=== PATIENT | male | born 1965 | race Two or more races ===

== ENCOUNTER 2024-06-06 13:01 | Emergency (ER) | payer OTHER, SELFPAY ==
--- NOTE | ~2024-06-06 | CT_ITS ---
EXAMINATION: CT HEAD WITHOUT CONTRAST CLINICAL INFORMATION: Head trauma. COMPARISON: CT head August 06, 2008 TECHNIQUE: Contiguous axial imaging was performed from the skull base to vertex without intravenous administration of contrast. Coronal and sagittal reformatted images are performed at the CT scanner. This CT examination was performed using dose optimization techniques as appropriate, variously including the following: *Automated exposure control *Adjustment of mA and/or kV according to patient size (this includes techniques or standardized protocols for targeted exams where dose is matched to indication/reason for exam; i.e. extremities or head) *Use of iterative reconstruction technique DLP: 649 mGy-cm. FINDINGS: There is no evidence of acute intracranial hemorrhage or territorial infarction. No abnormal mass-effect or midline shift is seen. Knutson to white matter differentiation is well preserved. No extra-axial fluid collections are identified. The ventricles are normal in size. There is no abnormal attenuation within the brain parenchyma. There is no osseous abnormality. Pansinus disease. Lobular mucosal thickening in the frontal ethmoid maxillary and sphenoid sinuses. No significant disease in the bilateral maxillary sinus. CT/CT head/brain wo IV con IMPRESSION: 1. No acute intracranial pathology. 2. Pansinus disease. Electronically signed by: Daljit Meyer MD 06/06/2024 04:58 PM EDT RP
[2024-06-06 14:10] VITALS: BP 181/109; PULSE 74; RESP 16; TEMP 36.8; O2SAT 98; BMI 29.2
--- NOTE | 2024-06-06 14:15 | ED.GENADULT ---
HPI - General Adult General Chief complaint: Head Injury Stated complaint: Head inj work inj Time Seen by Provider: 06/06/24 17:40 Source: patient, RN notes reviewed and old records reviewed Mode of arrival: ambulatory Limitations: no limitations History of Present Illness ED Provider: Gary GRAVES narrative: 59-year-old male presents for evaluation of a head injury. Patient was at work for [employer] works. He states that it machine sent a rock approximately size of a baseball flying in the air that hit the patient on the right side of the head near his confucianism. He reported a loss of consciousness with dizziness. He is not on any blood thinners. He complains of a right-sided headache Denies any blurry vision, nausea vomiting Denies any neck pain or any other injuries Related Data Allergies Allergy/AdvReac Type Severity Reaction Status Date / Time No Known Allergies Allergy Verified 06/06/24 14:11 Review of Systems Constitutional: Constitutional: Denies body ache(s), Denies chills, Denies frequent falls and Reports headache(s) Eyes: Eyes: Denies blurry vision and Denies change in vision ENT: Denies vertigo, Denies dizziness and Reports headache(s) Cardiovascular: Cardiovascular: Denies chest pain and Denies dyspnea Respiratory: Respiratory: Denies dyspnea Gastrointestinal: Gastrointestinal: Denies abdominal pain, Denies nausea and Denies vomiting Musculoskeletal: Musculoskeletal: Denies back pain Integumentary/Breasts: Skin/Breast: Denies rash and Denies wounds Neurologic: Denies vertigo, Denies dizziness, Denies frequent falls and Reports headache(s) PMFSH Social History Social History Advance Directives: No Advance Directives Information Provided: No Physical Exam ED Vital Signs: Vital Signs - 24 hr 06/06/24 14:10 Temperature 98.3 F Pulse Rate 74 Respiratory Rate 16 Blood Pressure 181/109 H Pulse Oximetry 98 Oxygen Delivery Method Room Air BMI result Body Mass Index 29.2 Const General: healthy appearing, comfortable, no acute distress, alert and awake Nutritional Appearance: well nourished Orientation/consciousness: patient oriented x3 HENMT Other: Small cutaneous hematoma in the right temporal region, no wounds or lacerations Eyes Eyelids: Yes eyelids normal Conjunctivae: conjunctivae normal Sclerae: sclerae normal Corneas: corneas normal Pupils: Equal, round and reactive pupils present EOM: EOMs intact bilaterally Neck Neck: Yes full ROM Resp Effort & Inspection: normal respiratory effort, able to speak in complete sentences and not labored Skin General skin exam: elasticity normal Neuro General: patient oriented x3 Cranial nerves: Yes CN's II-XII intact bilaterally, Yes Equal, round and reactive pupils present and Yes Bilaterally intact EOM present Cognition (Neuro): normal cognition Extrem Other: Moving all extremities well without any obvious deformities Course Course Course Narrative: RME, this is a rapid medical exam performed by Ronn Vega please refer to primary provider for complete H&P- 59-year-old male presents for evaluation of a head injury. Patient was at work when a rock that he describes of about the size of a baseball shot out of a machine and hit him in the right temporal area. He reports a loss of consciousness. He is not anticoagulated. Reassuring neuro exam. Plan for CT scan of the brain Medical Decision Making Medical Decision Making MDM Narrative: 59-year-old male presents for evaluation of a minor head injury. He was struck in the side of the head by a rock. He had a reported loss of consciousness, there are no neuro deficits at the time my evaluation. CT scan of the brain shows no evidence of traumatic brain injury or skull fracture. The patient will be discharged with symptomatic care with Tylenol. Differential Diagnosis Differential Diagnoses: The differential diagnosis associated with the presentation includes Compression Acute headache Skull fracture Intracranial hemorrhage Independent Interpretation I performed an independent interpretation of an: CT Scan Interpretation: Agree with Radiology interpretation Radiology Impression Discussion of test interpretation with radiology: I have reviewed the radiologist's reading. Radiologist Impression: FINDINGS: There is no evidence of acute intracranial hemorrhage or territorial infarction. No abnormal mass-effect or midline shift is seen. Knutson to white matter differentiation is well preserved. No extra-axial fluid collections are identified. The ventricles are normal in size. There is no abnormal attenuation within the brain parenchyma. There is no osseous abnormality. Pansinus disease. Lobular mucosal thickening in the frontal ethmoid maxillary and sphenoid sinuses. No significant disease in the bilateral maxillary sinus. CT/CT head/brain wo IV con IMPRESSION: 1. No acute intracranial pathology. 2. Pansinus disease. Discharge Plan Discharge Clinical Impression: Closed head injury Patient Disposition: Home, Self-Care Instructions: Head Injury (ED) Additional Instructions: Your CT scan did not show any evidence of traumatic injury. You may use Tylenol or ibuprofen as needed for headaches Follow-up with your primary doctor, return for new or worsening symptoms Print Language: Estonian
[2024-06-06 18:21] VITALS: BP 181/109; PULSE 74; RESP 16; TEMP 36.8; O2SAT 98
== END 2024-06-06 18:21 | disposition home or self-care (01) ==
PROVIDERS: Emergency Provider Internal Medicine
DX: S09.90XA Unspecified injury of head, initial encounter (principal); W20.8XXA Other cause of strike by thrown, projected or falling object, initial encounter; Y93.89 Activity, other specified; Y92.9 Unspecified place or not applicable; Y99.0 Civilian activity done for income or pay
CPT/HCPCS: 70450; 99282; 99284

== ENCOUNTER → 2024-06-07 09:34 | Outpatient (BNVA) | payer OTHER, SELFPAY | PROVIDERS: Visit Provider Physician Assistant Medical | DX: S06.2X1A Diffuse traumatic brain injury with loss of consciousness of 30 minutes or less, initial encounter (principal); W20.8XXA Other cause of strike by thrown, projected or falling object, initial encounter; R51.9 Headache, unspecified | CPT/HCPCS: 99203 ==

== ENCOUNTER → 2024-06-10 09:06 | Outpatient (BNVA) | payer OTHER, SELFPAY | PROVIDERS: Visit Provider Physician Assistant | DX: S09.90XD Unspecified injury of head, subsequent encounter (principal); W20.8XXD Other cause of strike by thrown, projected or falling object, subsequent encounter | CPT/HCPCS: 99213 ==